=== PATIENT | female | born 1980 | race African-American/Black ===

== ENCOUNTER 2016-06-30 16:16 | Emergency (ER) | payer SELFPAY ==
[~2016-06-30] VITALS: Ht 154.9 cm; Wt 61.3 kg
[2016-06-30] MEDS ORDERED: NAPROSYN500 MG PO (17:47)
[2016-06-30] MEDS ORDERED: ULTRAM50 MG PO (17:47)
[2016-06-30 18:49] VITALS: BP 113/57
== END 2016-06-30 18:51 | disposition home or self-care (01) ==
LOC: EME 16:16
DX: S93.402A Sprain of unspecified ligament of left ankle, initial encounter (principal); W00.0XXA Fall on same level due to ice and snow, initial encounter
CPT/HCPCS: 73590; 73610; 99281; 99284; J3010